=== PATIENT | female | born 1990 | race Caucasian/White ===

== ENCOUNTER 2025-02-21 15:24 | Emergency (ER) | payer BC ==
[~2025-02-21] VITALS: Ht 167.6 cm; Wt 90.0 kg
[2025-02-21 15:31] VITALS: O2SAT 97
[2025-02-21] MEDS: LEVETIRACETAM 500MG PREMIX 100 ML IV ONE (16:11)
[2025-02-21] MEDS: MORPHINE SULFATE 10 MG/ML INJ (NOT FOR IM USE) IV ONE (17:00)
[2025-02-21] MEDS: ONDANSETRON HCL 4MG/2ML INJ IV ONE (17:01)
[2025-02-21 17:02] LABS: BASOPHILS % 0.4 % (0.0-2.0); EOSINOPHILS % 0.0 % (0.0-5.0); HEMATOCRIT. 42.2 % (36.0-48.0); HEMOGLOBIN. 14.3 g/dL (12.0-16.0); LYMPHOCYTES % 13.6 % (20.0-50.0); MEAN PLATELET VOLUME 9.3 fl (7.4-10.4); MONOCYTES % 3.8 % (2.0-8.0); NEUTROPHILS % 82.2 % (40.0-76.0); PLATELET 294 x1000/uL (130-400); RED BLOOD CELL COUNT 4.74 mill/uL (4.2-5.4); RED CELL DISTRIBUTION WIDTH 12.5 % (11.6-14.6)
[2025-02-21 17:12] LABS: INR 1.0
[2025-02-21 17:13] LABS: CREATININE 0.8 mg/dL (0.6-1.0)
[2025-02-21 17:14] LABS: UREA NITROGEN BLOOD 12 mg/dL (9-23)
[2025-02-21 17:29] LABS: LACTIC ACID 3.2 mmol/L (0.4-2.0)
[2025-02-21] MEDS: HALOPERIDOL LACTATE 5MG/ML VIAL IM NR (17:35)
[2025-02-21] MEDS: SODIUM CHLORIDE 0.9% 1,000 ML IV ONE (17:36)
[2025-02-21 18:27] VITALS: TEMP 36.9
[2025-02-21] MEDS ORDERED: HALO2TAB2 MT (19:31)
[2025-02-21 20:05] VITALS: BP 110/53; PULSE 67; RESP 13; O2SAT 96
[2025-02-22] MEDS ORDERED: IOHEXOL-300 100 ML BOTTLE ONE (01:01)
== END 2025-02-21 20:21 | disposition home or self-care (01) ==
LOC: ER 15:24
DX: F12.90 Cannabis use, unspecified, uncomplicated (principal); Z79.899 Other long term (current) drug therapy
CPT/HCPCS: 80048; 83605; 83690; 85025; 85610; 36415; 74177; 96361; 96365; 96372; 96375; 99285; Q9967; J1953; J1630; J2405; J2270; J7030; Z7610